=== PATIENT | male | born 1970 | race Caucasian/White ===

== ENCOUNTER 2017-10-27 04:35 | Emergency (ER) | payer OTHER ==
[~2017-10-27] VITALS: Ht 162.6 cm; Wt 67.6 kg
[~2017-10-27 04:35] MED LIST: NABUMETONE500 MG PO; PERCOCET 5/3251 TAB PO
== END 2017-10-27 10:33 | disposition home or self-care (01) ==
LOC: ER 04:35
DX: N20.1 Calculus of ureter (principal)